=== PATIENT | female | born 1970 | race Caucasian/White ===

== ENCOUNTER 2016-11-09 13:55 | Observation (INO) | payer OTHER ==
[~2016-11-09] VITALS: Ht 162.6 cm; Wt 77.1 kg
[2016-11-09 16:51] LABS: HEMOGLOBIN 13.7 gm/dl (12.3-15.3); RED BLOOD COUNT 4.56 M/UL (4.00-5.10); WHITE BLOOD COUNT 26.7 K/UL (4.5-11.0)
[2016-11-09 17:08] LABS: BUN/CREATININE RATIO 25 (0-10)
[2016-11-10 07:23] LABS: HEMOGLOBIN 11.7 gm/dl (12.3-15.3); RED BLOOD COUNT 3.87 M/UL (4.00-5.10); WHITE BLOOD COUNT 18.8 K/UL (4.5-11.0)
[2016-11-10 07:46] LABS: BUN/CREATININE RATIO 26 (0-10)
[2016-11-10] MEDS ORDERED: CENTRUM COMPLE1 EACH PO (11:17)
[2016-11-10] MEDS ORDERED: LACTAID PO (11:23)
[2016-11-10] MEDS ORDERED: PROBIOTIC & AC1 EACH PO (11:24)
[2016-11-10] MEDS ORDERED: VIACTIV SOFT C1 EACH PO (11:24)
[2016-11-10] MEDS ORDERED: ZOVIRAX 800 MG800 MG PO (11:27)
[2016-11-10] MEDS ORDERED: AMOXICILLIN875 MG PO (11:29)
[2016-11-10] MEDS ORDERED: FAMOTIDINE20 MG PO (11:30)
[2016-11-10] MEDS ORDERED: HYDROXYZINE HCL25 MG PO (11:31)
[2016-11-10] MEDS ORDERED: CELEBREX200 MG PO (11:33)
[2016-11-10] MEDS ORDERED: PREDNISONE 10 M10 MG PO (11:33)
[2016-11-10] MEDS ORDERED: KLONOPIN TAB 00.5 MG PO (11:34)
[2016-11-10] MEDS ORDERED: FLEXERIL 10 MG10 MG PO (11:35)
[2016-11-10] MEDS ORDERED: ZYRTEC10 M2 PO (11:39)
[2016-11-10] MEDS ORDERED: VENLAFAXINE HCL75 MG PO (11:39)
[2016-11-10] MEDS ORDERED: NEURONTIN 300300 MG PO (11:40)
[2016-11-10] MEDS ORDERED: PROPRANOLOL HCL20 MG PO (11:41)
[2016-11-10] MEDS ORDERED: ZANTAC 150 MG150 MG PO (11:41)
[2016-11-10] MEDS ORDERED: ALORA1 EAC1 TOP (11:42)
[2016-11-10] MEDS ORDERED: BENTYL10 MG PO (11:43)
[2016-11-11 04:38] LABS: RED BLOOD COUNT 3.98 M/UL (4.00-5.10); WHITE BLOOD COUNT 14.7 K/UL (4.5-11.0)
[2016-11-11 05:01] LABS: BUN/CREATININE RATIO 20 (0-10)
[2016-11-11] MEDS ORDERED: BENADRYL 50MG C50 MG PO (16:45)
[2016-11-11] MEDS ORDERED: MEDROL DOSE PACK PO (16:47)
== END 2016-11-11 17:20 | disposition home or self-care (01) ==
LOC: ER1 13:55 → ZEROF 20:08 → CCU 11-10 11:40 → MED SURG 4 11-10 22:48
PROVIDERS: Physician Assistant; ADMIT Family Medicine
DX: R21 Rash and other nonspecific skin eruption (principal); L29.9 Pruritus, unspecified; R60.9 Edema, unspecified; T37.0X5A Adverse effect of sulfonamides, initial encounter; F41.1 Generalized anxiety disorder; M79.7 Fibromyalgia; K58.9 Irritable bowel syndrome, unspecified; N39.0 Urinary tract infection, site not specified; M19.90 Unspecified osteoarthritis, unspecified site; M50.30 Other cervical disc degeneration, unspecified cervical region; Z79.899 Other long term (current) drug therapy; Z88.1 Allergy status to other antibiotic agents; Z88.8 Allergy status to other drugs, medicaments and biological substances; Z87.891 Personal history of nicotine dependence
CPT/HCPCS: 36415; 80048; 80053; 85025; 96361; 96374; 96375; 96376; 99284; G0378 ×2; J1100; J1200; J2920; J7030; Q0163

== ENCOUNTER → 2021-05-08 | Outpatient (CLI) | payer OTHER ==
[~2021-05-08] MED LIST: ALORA1 EAC1 TOP; AMOXICILLIN875 MG PO; BENADRYL 50MG C50 MG PO; BENTYL10 MG PO; CELEBREX200 MG PO; CENTRUM COMPLE1 EACH PO; FAMOTIDINE20 MG PO; FLEXERIL 10 MG10 MG PO; HYDROXYZINE HCL25 MG PO; KLONOPIN TAB 00.5 MG PO; LACTAID PO; MEDROL DOSE PACK PO; NEURONTIN 300300 MG PO; PREDNISONE 10 M10 MG PO; PROBIOTIC & AC1 EACH PO; PROPRANOLOL HCL20 MG PO; VENLAFAXINE HCL75 MG PO; VIACTIV SOFT C1 EACH PO; ZANTAC 150 MG150 MG PO; ZOVIRAX 800 MG800 MG PO; ZYRTEC10 M2 PO
== END ==
LOC: EXRD 10:12
DX: M25.511 Pain in right shoulder (principal); R76.8 Other specified abnormal immunological findings in serum; M89.8X2 Other specified disorders of bone, upper arm
CPT/HCPCS: 73030

== ENCOUNTER 2021-12-11 11:57 | Emergency (ER) | payer OTHER ==
[2021-12-11 13:13] LABS: HEMOGLOBIN 14.3 gm/dl (12.3-15.3); RED BLOOD COUNT 4.9 M/UL (4.00-5.10); WHITE BLOOD COUNT 7.3 K/UL (4.5-11.0)
[2021-12-11 13:38] LABS: BUN/CREATININE RATIO 11 (0-10)
[2021-12-11] MEDS ORDERED: ONDANSETRON ODT4 MG SL (16:43)
[2021-12-11] MEDS ORDERED: IMODIUM CAP 2 MG2 MG PO (16:43)
== END 2021-12-11 17:51 | disposition home or self-care (01) ==
LOC: ER1 11:57
PROVIDERS: Physician Assistant
DX: R10.32 Left lower quadrant pain (principal); R19.7 Diarrhea, unspecified; R82.71 Bacteriuria; E78.5 Hyperlipidemia, unspecified; I10 Essential (primary) hypertension; Z87.442 Personal history of urinary calculi; Z90.49 Acquired absence of other specified parts of digestive tract; Z90.710 Acquired absence of both cervix and uterus
CPT/HCPCS: 80053; 81001; 83690; 84703; 85025; 87077; 87086; 87186; 96361; 96374; 96375; 99284; J1885; J2405; J7030; Q9967